=== PATIENT | female | born 1975 | race Caucasian/White ===

== ENCOUNTER 2016-06-06 11:33 | Inpatient (IN) | payer BC ==
[~2016-06-06] VITALS: Ht 160 cm; Wt 64.5 kg
[~2016-06-06 11:33] MED LIST: OXYTOCIN 30 UNITS/LR 500 ML BAG IV ONE
[2016-06-06] MEDS ORDERED: MISOPROSTOL 200 MCG TAB PR PRN ×2 (12:00→17:30)
[2016-06-06] MEDS ORDERED: OXYTOCIN 30 UNITS/LR 500 ML IV SCH (12:00)
[2016-06-06] MEDS ORDERED: METHYLERGONOVINE 0.2 MG INJ IM PRN ×2 (12:00→17:30)
[2016-06-06] MEDS ORDERED: CEFAZOLIN 2 GM/50 ML (PMX) 50 ML IV SCH (12:00)
[2016-06-06] MEDS ORDERED: OXYTOCIN 30 UNITS/LR 500 ML IV PRN ×2 (12:00→17:30)
[2016-06-06] MEDS ORDERED: CARBOPROST 250 MCG INJ IM PRN ×2 (12:00→17:30)
[2016-06-06 12:13] VITALS: Ht 160 cm; Wt 64.5 kg
[2016-06-06 12:15] VITALS: BP 126/83; PULSE 93
[2016-06-06] MEDS ORDERED: PREN-99 PO (12:18)
[2016-06-06 12:24] LABS: ADD SCAN DIFF NO
[2016-06-06 12:27] LABS: BASOPHILS % 0.4 % (0.0-2.0); EOSINOPHILS % 0.3 % (0.0-7.0); HEMATOCRIT 35.2 % (37.0-47.0); HEMOGLOBIN 12.3 g/dl (12.0-16.0); LYMPHOCYTES % 17.9 % (15.0-51.0); MEAN CORPUSCULAR HEMOGLOBIN 31.9 pg (29.0-33.0); MEAN CORPUSCULAR HGB CONC 34.9 g/dl (32.0-37.0); MEAN CORPUSCULAR VOLUME 91.4 fl (82.0-101.0); MEAN PLATELET VOLUME 9.9 fl (7.4-10.4); MONOCYTE # 0.7 10^3/ul (0.3-0.9); NEUTROPHIL # 8.4 10^3/ul (1.6-7.5); PLATELET COUNT 284 10^3/UL (140-415); RED BLOOD COUNT 3.85 10^6/ul (4.20-5.40); RED CELL DISTRIBUTION WIDTH 13.2 % (11.5-14.5); WHITE BLOOD COUNT 11.2 10^3/ul (4.8-10.8)
[2016-06-06] MEDS: LACTATED RINGER'S 1,000 ML IV SCH ×4 (12:27→18:37)
[2016-06-06 12:42] LABS: INR 0.93; PROTIME 12.5 Sec (12.2-14.2)
[2016-06-06] MEDS ORDERED: CLINDAMYCIN 900 MG/D5W (PMX) 50 ML IVPB SCH (13:00)
[2016-06-06] MEDS ORDERED: ONDANSETRON 4 MG INJ ONE (13:48)
[2016-06-06] MEDS ORDERED: PHENYLephrine (100 MCG/ML) 5ML SYG ONE ×2 (13:48→14:21)
[2016-06-06] MEDS ORDERED: morphine SULFATE/PF (10 MG/10 ML) INJ ONE (13:48)
[2016-06-06] MEDS ORDERED: OXYTOCIN 10 UNIT INJ ONE (13:48)
[2016-06-06] MEDS ORDERED: FENTAnyl 50 MCG/ML VIAL ONE (14:54)
[2016-06-06] MEDS ORDERED: LANOLIN 7 GM TUBE TOP PRN (17:30)
[2016-06-06] MEDS ORDERED: NALOXONE (0.4 MG/ML) INJ IV PRN (17:30)
[2016-06-06] MEDS ORDERED: ONDANSETRON 4 MG INJ IV PRN (17:30)
[2016-06-06] MEDS ORDERED: DIPHENHYDRAMINE 50 MG INJ IV PRN (17:30)
[2016-06-06] MEDS ORDERED: OXYCODONE/ACETAMINOPHEN (5/325) TAB PO PRN ×2 (17:30)
[2016-06-06] MEDS ORDERED: morphine 2 MG INJ IV PRN (17:30)
[2016-06-06 17:50] VITALS: BP 117/77; PULSE 105; RESP 18
[2016-06-06 20:10] VITALS: BP 110/71; PULSE 93; RESP 18
[2016-06-06] MEDS: IBUPROFEN 800 MG TAB PO SCH (22:00)
[2016-06-07] VITALS: BP 105/69; PULSE 69; RESP 18
[2016-06-07] MEDS: KETOROLAC 30 MG INJ IV PRN ×2 (00:36→14:06)
[2016-06-07] MEDS: LACTATED RINGER'S 1,000 ML IV SCH ×2 (03:00→09:48)
[2016-06-07 04:00] VITALS: BP 110/61; PULSE 78; RESP 18
[2016-06-07] MEDS: IBUPROFEN 800 MG TAB PO SCH ×3 (06:00→21:20)
[2016-06-07 08:00] VITALS: BP 117/64; PULSE 96; RESP 17
[2016-06-07 08:18] LABS: ADD SCAN DIFF NO
[2016-06-07 08:29] LABS: BASOPHILS % 0.2 % (0.0-2.0); EOSINOPHILS % 0.1 % (0.0-7.0); HEMATOCRIT 26.6 % (37.0-47.0); HEMOGLOBIN 9.2 g/dl (12.0-16.0); LYMPHOCYTES # 1.3 10^3/ul (0.8-2.9); LYMPHOCYTES % 9.3 % (15.0-51.0); MEAN CORPUSCULAR HEMOGLOBIN 31.7 pg (29.0-33.0); MEAN CORPUSCULAR HGB CONC 34.6 g/dl (32.0-37.0); MEAN CORPUSCULAR VOLUME 91.7 fl (82.0-101.0); MONOCYTE # 0.8 10^3/ul (0.3-0.9); MONOCYTES % 5.6 % (0.0-11.0); NEUTROPHIL # 11.3 10^3/ul (1.6-7.5); NEUTROPHILS % 84.3 % (39.0-77.0); PLATELET COUNT 207 10^3/UL (140-415); RED CELL DISTRIBUTION WIDTH 13.3 % (11.5-14.5); WHITE BLOOD COUNT 13.5 10^3/ul (4.8-10.8)
[2016-06-07 12:01] VITALS: BP 112/67; PULSE 101; RESP 18
[2016-06-07 15:50] VITALS: BP 116/68; PULSE 109; RESP 19
--- NOTE | 2016-06-07 19:38 | QN ---
Documentation Comment POD #1 s/p primary C/s. Doing well with good pain control. Tolerating a regular diet. No flatus yet and no abdominal distention. is going well.' T= 98.4 BP 116/68 Dressing is clean, dry and intact. Lochis minimal. Ext NT, no edema. WBC 13.5 Hgb 9.2. P: Continue care and plan d/c for 06/09. JOSE ARMSTRONG MD Jun 07, 2016 19:38
[2016-06-07 19:45] VITALS: BP 108/70; PULSE 92; RESP 18
--- NOTE | 2016-06-07 21:59 | OPR ---
DATE OF OPERATION: 06/06/2016 PREOPERATIVE DIAGNOSIS: Intrauterine at 39 weeks 2 days, breech presentation. POSTOPERATIVE DIAGNOSIS: Intrauterine at 39 weeks 2 days, breech presentation, status pos t delivery of viable female infant weighing 3175 grams or 7 pounds with Apgars of 8 and 9. OPERATION PERFORMED: Primary low transverse section. SURGEON: Tanner Childers MD COMMODITY SUPERVISOR: Loretta Cooper MD ANESTHESIA: Joe Mason MD ESTIMATED BLOOD LOSS: 500 mL COMPLICATIONS: None. DESCRIPTION OF PROCEDURE: The patient was brought to the operating room, placed on the operating ta ble and was set up for a spinal block with Duramorph. She was then laid in the supine position and was prepped and draped in usual sterile fashion after placement of a Joseph catheter. A Pfannenstiel incision was made using a knife through the skin and subcutaneous tissue down to the level of fasci a. Fascia was incised and extended bilaterally using Bovie cautery. Superior edge of the fascia wa s grasped with Osiris clamps, and the rectus muscles were from the overlying fascia using blunt dissection and Bovie cautery. This was repeated at the lower edge of the incision as well. T he rectus muscles were in midline with the surgeon's fingers, and the anterior peritoneum was bluntly entered, and this incision was easily stretched open with the hands. A bladder blade an d Mcknight retractor were placed in the incision. Bladder was noted to be very low, so a knife wa s used to incise the lower uterine segment, was entered using a Fozia clamp, and then it was rather thinned out and was stretched open easily using the surgeon's hands. Baby's bottom was delivered up through the incision after breaking the bag of water, which was clear. Baby was in a ivan breech position, delivered the baby until the legs could be delivered and then up to the shoulder blades, d elivered each arm and then easily delivered the head. The mouth and nares were bulb suctioned. The baby was wiped down. The cord was doubly clamped and cut, and the baby was brought from the field over to the warmer, where the respiratory team was in attendance. Cord blood was obtained. The mraio centa was manually extracted. Uterus was externalized, wrapped in a moist lap, and a dry lap was us ed to clean the interior of the uterus. Incision was closed in 2 layers using #1 chromic in a runni ng locking stitch with excellent tissue approximation and hemostasis. Tubes and ovaries were examin ed, noted to be normal. The pelvis was irrigated well. Uterus was replaced back into the abdomen. Incision was examined again and noted to be dry. The anterior peritoneum was then closed using 2-0 chromic in a running stitch. The rectus muscles were brought back together at midline with 2 inter rupted npfbyk-oz-[id number] sutures of the same material. The underbelly of the fascia was examined and noted to be dry. The fascia was then closed using 0 Vicryl in a running stitch from each lateral ed ge to midline with overlap at the midline. Subcutaneous tissue was irrigated well, cautery applied where needed for hemostasis, and subcutaneous layer was then closed with 2-0 [address] in a running st itch, and the skin was closed with 3-0 Monocryl in a subcuticular stitch with excellent tissue appro ximation and hemostasis. Steri-Strips with Mastisol were placed. A pressure dressing was applied o verall. The patient was transferred to the recovery room in excellent condition, having tolerated t he procedure well. Dictated By: TANNER COLON/ANDRIY Conf#: [id number] DID#: [id number]
[2016-06-08 04:05] VITALS: BP 113/76; PULSE 85; RESP 19
[2016-06-08] MEDS: IBUPROFEN 800 MG TAB PO SCH ×3 (06:00→21:49)
--- NOTE | 2016-06-08 06:29 | PREOPHP ---
DATE OF ADMISSION: 06/06/2016 DATE OF SURGERY: 06/06/2016 HISTORY OF PRESENT ILLNESS: The patient is a 41-year-old 3, para 2, with a due date of 05/23, with an intrauterine at 39 weeks 2 days at the time of delivery. She had a normal course and was found to have a breech presentation; therefore, is scheduled for a primary c esarean section. The patient's 2 previous deliveries were normal deliveries, the 1st at 39 weeks, t he second at 35-1/2 weeks. This was remarkable for the Beryl progesterone injections kd ry week through the 36th week. The patient is also of advanced maternal age and did see the perinat ologist and had normal ultrasounds. She also had noninvasive testing that showed a female with normal chromosomes and no microdeletions of the common ones tested. PAST MEDICAL HISTORY: Otherwise none. PAST SURGICAL HISTORY: Tonsillectomy, right bunionectomy, and left knee surgery in 1992. ALLERGIES: PENICILLIN. MEDICATIONS: Only vitamins. PHYSICAL EXAMINATION: VITAL SIGNS: The patient is 5 foot 2 and 142 pounds. HEART: Regular rate and rhythm. LUNGS: Clear to auscultation. ABDOMEN: Soft, nontender, gravid. PELVIC: Cervical exam deferred. EXTREMITIES: Nontender. No edema. LABORATORY WORK: Blood type B positive, antibody screen negative, serology nonreactive, ru archana immune, hepatitis B surface antigen negative, hepatitis C antibody negative, HIV negative. TS H is normal. First and second trimester screens with nuchal translucency were normal. Platelets 28 8,000, MCV 89. Pap was negative. Beta strep negative. Drug screen negative. Initial hemoglobin 1 3.5, and repeat was 11.3. ASSESSMENT: Intrauterine at 39 weeks 2 days, breech presentation. PLAN: Primary low transverse section. Dictated By: JOSE COLON/ANDRIY Conf#: [id number] DID#: [id number]
[2016-06-08 07:55] VITALS: BP 108/60; PULSE 99; RESP 18
[2016-06-08 15:40] VITALS: BP 110/61; PULSE 88; RESP 20
--- NOTE | 2016-06-08 16:39 | QN ---
Documentation Comment POD #2 s/p primary c/s. Doing fine and w/o complaints. Regular diet. + flatus. VSS, afebrile. Dressing still intact and dry (will be removed after a shower). Ext NT, 1+ edema. P: continue care. D/C tomorrow. JOSE ARMSTRONG MD Jun 08, 2016 16:39
[2016-06-08 20:25] VITALS: BP 112/75; PULSE 85; RESP 19
[2016-06-09 04:15] VITALS: BP 108/70; PULSE 82; RESP 18
[2016-06-09] MEDS: IBUPROFEN 800 MG TAB PO SCH ×2 (05:35→14:28)
[2016-06-09 07:41] VITALS: BP 111/73; PULSE 69; RESP 20
--- NOTE | 2016-06-09 08:33 | PD.PPDC ---
NURSING UNIT MANAGER Discharge Instruction Condition Patient Condition: Good Diet Diet: Resume Regular Diet Activity/Restrictions Activity: Bedrest May be up to bathroom May be up for meals May Shower Restrictions: No Exercising No Lifting No Driving Minimize Walking Minimize Stair-climbing No Sexual Activity Nothing in the Vagina No [place] No Tampons, douche Wound/Drain Care Instructions Wound/Drain Care Instructions: Remove Steri Strips in 2 weeks Keep clean and dry Follow-up Follow-up with Physician: 2, Week/Weeks Return to clinic for APICULTURIST Instructions: Fever greater than 101 Chills Worsening abdominal pain Excessive Vaginal Bleeding OB Instructions: Breast Tenderness Depression Surgical Instructions: Incisional Drainage Incisional Redness JOSE ARMSTRONG MD Jun 09, 2016 08:32
--- NOTE | 2016-06-09 08:36 | DS ---
Date/Time of Note Date/Time of Note DATE: 06/09/16 TIME: 08:34 Obstetrical Discharge Record Final Diagnosis Final Diagnosis: Term delivered Section Section: Primary Primary Indication BREECH Complications Other (Breech) Condition on Discharge Physical Assessment Last Vitals: T=98.8 BP 111/73 Voiding: Yes Bowel Movement: No Breast: Filling Fundus: Firm Abdomen and Incision: Clean, dry, and intact. Calf Tenderness: No Patient Condition: Good JOSE ARMSTRONG MD Jun 09, 2016 08:35
[2016-06-09] MEDS ORDERED: DIPHTH/TET/ACEL PERTUSS (ADULT) 0.5 ML VIAL IM* ONE (09:00)
== END 2016-06-09 15:03 | disposition home or self-care (01) | DRG 766 ==
LOC: L-D 11:33 → PP1 17:42
PROVIDERS: ADMIT Obstetrics & Gynecology; ATTEND Obstetrics & Gynecology
PROC: 10D00Z1 Extraction of Products of Conception, Low, Open Approach (ICD-10-PCS; principal; 2016-06-06 12:30)
DX: O32.1XX0 Maternal care for breech presentation, not applicable or unspecified (principal); Z37.0 Single live birth; Z3A.39 39 weeks gestation of pregnancy
CPT/HCPCS: 85025; 85610; 85730; 86592; 86850; 86900; 86901; 90715; 99464; J1885; J2274; J2370; J2405; J2590; J3010; J7120